=== PATIENT | female | born 2000 | race Hispanic/Latino ===

== ENCOUNTER 2018-05-24 19:49 | Emergency (ER) | payer MEDICAID, OTHER | END 2018-05-24 21:25 | disposition home or self-care (01) | LOC: EDH 19:49 | DX: L03.032 Cellulitis of left toe (principal) ==

== ENCOUNTER 2018-06-19 20:16 | Emergency (ER) | payer SELFPAY ==
[2018-06-19 20:46] LABS: APPEARANCE,URINE Clear (CLEAR); BILIRUBIN,URINE Negative (NEGATIVE); COLOR,URINE Yellow (YELLOW); GLUCOSE, URINE (UA) Negative (NEGATIVE); KETONES,URINE Trace mg/dL (NEGATIVE); LEUKOCYTE ESTERASE ,URINE Negative (NEGATIVE); NITRATE,URINE Negative (NEGATIVE); OCCULT BLOOD,URINE Negative (NEGATIVE); PH,URINE 6.5 (5.0-8.0); PROTEIN,URINE Negative (NEGATIVE)
[2018-06-19 20:52] LABS: HCG,QUAL RESULT NEGATIVE (NEGATIVE)
[2018-06-19] MEDS ORDERED: KETOROLAC TROMETHAMINE 30MG/ML ONE (21:16)
== END 2018-06-19 23:30 | disposition home or self-care (01) ==
LOC: EDH 20:16
DX: N83.291 Other ovarian cyst, right side (principal)
CPT/HCPCS: 76856; 81003; 81025; 96372; 99284; J1885

== ENCOUNTER 2021-10-27 21:18 | Emergency (ER) | payer OTHER, SELFPAY ==
[~2021-10-27] VITALS: Ht 157.5 cm; Wt 42.2 kg
[2021-10-27] MEDS ORDERED: KETOROLAC 15MG/ML VIAL (15MG/ML) ONE (22:12)
[2021-10-27] MEDS ORDERED: 0.9%NACL 1000ML 1,000 ML IV ONE (22:30)
[2021-10-27] MEDS ORDERED: KETOROLAC 15MG/ML VIAL (15MG/ML) IV ONE (22:30)
[2021-10-27 22:35] LABS: BASOPHILS % (AUTO) 0.7 % (0.0-5.0); EOSINOPHILS % (AUTO) 0.3 % (0.0-8.0); HEMATOCRIT 42.6 % (36-48); LYMPHOCYTES % (AUTO) 18.2 % (21.0-51.0); MEAN CORPUSCULAR HEMOGLOBIN 27.3 pg (27.0-33.0); MEAN CORPUSCULAR HGB CONC 33.6 g/dL (32.0-36.0); MEAN CORPUSCULAR VOLUME 81.3 fL (79-99); MONOCYTES % (AUTO) 5.1 % (3.0-13.0); NEUTROPHILS % (AUTO) 75.4 % (40.0-77.0); PLATELET COUNT (AUTO) 265 K/uL (130-400); RED BLOOD CELL COUNT(AUTO) 5.24 MIL/uL (4.00-5.50); RED CELL DISTRIBUTION WIDTH 12.7 % (11.0-15.5); WHITE BLOOD COUNT (AUTO) 13.7 K/uL (4.8-10.8)
[2021-10-27 22:41] LABS: APPEARANCE,URINE CLEAR (CLEAR); BILIRUBIN,URINE SMALL (NEGATIVE); COLOR,URINE YELLOW (YELLOW); CREATININE 0.8 mg/dL (0.5-1.5); GLUCOSE, URINE (UA) NEGATIVE (NEGATIVE); KETONES,URINE >=80 mg/dL (NEGATIVE); LEUKOCYTE ESTERASE ,URINE NEGATIVE (NEGATIVE); NITRATE,URINE NEGATIVE (NEGATIVE); OCCULT BLOOD,URINE MODERATE (NEGATIVE); POTASSIUM 4.2 mmol/L (3.5-5.1); PROTEIN,URINE TRACE mg/dL (NEGATIVE); UROBILINOGEN,URINE 0.2 mg/dL (0.2-1.0)
[2021-10-27 22:48] LABS: ALBUMIN 5.1 g/dL (3.5-5.0); TOTAL PROTEIN, SERUM 9.8 g/dL (6.0-8.3)
[2021-10-27 22:55] LABS: BACTERIA,URINE Rare /HPF (None Seen); SQUAMOUS EPITHELIAL CELL,UR Moderate /HPF (0-2)
[2021-10-27] MEDS ORDERED: 0.9% NACL 500ML IV.SOLN 500 ML IV ONE (23:00)
[2021-10-27 23:18] VITALS: BP 113/70
== END 2021-10-27 23:30 | disposition home or self-care (01) ==
LOC: EDH 21:18
DX: E86.0 Dehydration (principal); Z79.1 Long term (current) use of non-steroidal anti-inflammatories (NSAID)
CPT/HCPCS: 99284; 96374; 96361; 80053; 85025; 81001; 36415; 93005; J7030; J1885

== ENCOUNTER 2022-10-22 06:49 | Emergency (ER) | payer BC ==
[2022-10-22] MEDS ORDERED: ONDANSETRON 4MG INJ ONE (08:13)
[2022-10-22] MEDS ORDERED: CEFTRIAXONE 1G VIAL ONE (08:13)
[2022-10-22] MEDS ORDERED: IBUPROFEN 600 MG TABLET ONE (08:14)
[2022-10-22] MEDS ORDERED: PHENAZOPYRIDINE HCL 200 MG TABLET ONE (08:14)
[2022-10-22] MEDS ORDERED: KCL 20 MEQ ERTAB PO ONE (09:29)
[2022-10-22 13:15] LABS: BASOPHILS # (AUTO) 0.08 K/uL (0.00-0.20); BASOPHILS % (AUTO) 0.4 % (0.0-5.0); EOSINOPHILS # (AUTO) 0.12 K/uL (0.00-0.70); EOSINOPHILS % (AUTO) 0.6 % (0.0-8.0); HEMATOCRIT 38.3 % (36-48); LYMPHOCYTES # (AUTO) 3.2 K/uL (1.0-4.8); LYMPHOCYTES % (AUTO) 16.8 % (21.0-51.0); MEAN CORPUSCULAR HEMOGLOBIN 27.5 pg (27.0-33.0); MEAN CORPUSCULAR HGB CONC 33.4 g/dL (32.0-36.0); MEAN CORPUSCULAR VOLUME 82.2 fL (79-99); MONOCYTES # (AUTO) 1.3 K/uL (0.1-1.0); MONOCYTES % (AUTO) 6.8 % (3.0-13.0); NEUTROPHILS % (AUTO) 74.9 % (40.0-77.0); PLATELET COUNT (AUTO) 273 K/uL (130-400); RED BLOOD CELL COUNT(AUTO) 4.66 MIL/uL (4.00-5.50); RED CELL DISTRIBUTION WIDTH 12.5 % (11.0-15.5); WHITE BLOOD COUNT (AUTO) 18.8 K/uL (4.8-10.8)
[2022-10-22 16:18] LABS: CHLORIDE 101 mmol/L (101-111); POTASSIUM 3.2 mmol/L (3.5-5.1); SODIUM SERUM 136 mmol/L (136-145)
[2022-10-22 16:19] LABS: ALANINE AMINOTRANSFERASE 18 U/L (12-78); ASPARTATE AMINOTRANSFERASE 16 U/L (10-37); BILIRUBIN,TOTAL 0.5 mg/dL (0.2-1.0); CREATININE 0.7 mg/dL (0.5-1.5); GLOMERULAR FILTR. RATE CALC 124 mL/min (>90); GLUCOSE,RANDOM 95 mg/dL (70-105); TOTAL PROTEIN, SERUM 7.6 g/dL (6.0-8.3); UREA NITROGEN, BLOOD 5 mg/dL (7-18)
[2022-10-22 16:20] LABS: ALBUMIN 4.2 g/dL (3.5-5.0)
== END 2022-10-22 09:40 | disposition home or self-care (01) ==
LOC: EDH 06:49
DX: N39.0 Urinary tract infection, site not specified (principal)
CPT/HCPCS: 99283; 80053; 84703; 85025; 36415; J0696; J2405